=== PATIENT | male | born 1940 | race Hispanic/Latino ===

== ENCOUNTER 2017-05-06 07:40 | Day surgery (SDC) | payer MEDICARE ==
[2017-05-05 14:17] VITALS: BMI 28.5
[2017-05-06 09:04] VITALS: RESP 18
[2017-05-06] MEDS ORDERED: ceFAZolin 1 gm FROZEN Premix 1 GM/50 ML ML IVPB ONE (09:26)
[2017-05-06] MEDS ORDERED: ceFAZolin IV 1 gm in Dextrose 1 GM/50 ML BAG IVPB ONE (09:28)
--- NOTE | 2017-05-06 09:28 | CP.SDSHP ---
Same Day Surgery H & P - History Proposed Procedure: Right medication port placement. Pre-Op Diagnosis: Malignant melanoma. - Allergies Allergies: Allergies No Known Allergies Allergy (Unverified 08/09/13 13:26) - Physical Exam Vital Signs: Vital Signs 05/06/17 08:43 Temperature 97.7 F Pulse Rate 60 Respiratory 18 Rate Blood Pressure 125/65 O2 Sat by Pulse 96 Oximetry Short Stay Discharge - Short Stay Discharge Admitting Diagnosis/Reason for Visit: MALIGNANT MELANOMA OF SKIN, UNSPECIFIED Disposition: HOME/ ROUTINE
[2017-05-06] MEDS ORDERED: Lidocaine 1% w Epi 1:100,000 Inj ONE (09:32)
[2017-05-06] MEDS ORDERED: Midazolam 2 MG/2 ML VIAL ONE ×2 (09:36→09:50)
[2017-05-06] MEDS ORDERED: Lidocaine 2% Inj (20ml) ONE (10:03)
--- NOTE | 2017-05-06 10:56 | PCM.SURG1 ---
Surgeon's Initial Post Op Note - Surgeon's Notes Surgeon: Valentin Director Telemetry: None Type of Anesthesia: Local Pre-Operative Diagnosis: Melanoma Operative Findings: Patent right IJV. Post-Operative Diagnosis: Melanoma Operation Performed: Right chest medication port placed via right IJV Specimen/Specimens Removed: None Estimated Blood Loss: EBL {In ML}: 1 Date of Surgery/Procedure: 05/06/17 Time of Surgery/Procedure: 10:30
[2017-05-06 11:57] VITALS: PULSE 65; O2SAT 98
[2017-05-06 13:34] VITALS: BP 148/91; TEMP 98
== END 2017-05-06 12:17 | disposition home or self-care (01) ==
LOC: C.SPRAD 07:40
PROVIDERS: ATTEND Orthopaedic Surgery Sports Medicine
DX: C43.9 Malignant melanoma of skin, unspecified (principal); K21.9 Gastro-esophageal reflux disease without esophagitis; Z87.891 Personal history of nicotine dependence
CPT/HCPCS: 36571; 76937; 77001; 94770; C1769; C1788; J0690; J1644; J2250; J3010

== ENCOUNTER 2018-01-12 15:41 | Emergency (ER) | payer MEDICARE ==
[2018-01-12 15:41] VITALS: BMI 28.5
[2018-01-12] MEDS ORDERED: Bacitracin 500 Units/gm Oint Foilpak UD TOP ONE (16:09)
--- NOTE | 2018-01-12 16:20 | C.PDOC ---
History Of Present Illness 77 year old male, whose PMHx includes skin cancer, presents to the ED for evaluation after he sustained a fall prior to arrival. Patient was leaving Dr. Bernstein's office after completing his chemotherapy session. He was using his walker when he accidentally tripped and fell. Patient also states he has an abscess to his right facial area for which he is taking PO antibiotics and pain medications. Patient denies loss of consciousness, wrist pain, tongue bite. 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), Fractures (right arm) Denies: Chronic Kidney Disease Surgical History: No Surg Hx Family History: States: Unknown Family Hx - Social History Hx Tobacco Use: No Hx Alcohol Use: Yes (3-4x a week x 4 beers) Hx Substance Use: No - Immunization History Hx Tetanus Toxoid Vaccination: No Hx Influenza Vaccination: No Hx Pneumococcal Vaccination: Yes (5 years ago) Review Of Systems Musculoskeletal: Negative for: Other (wrist pain ) Skin: Positive for: Other (evaluated s/p fall ) Neurological: Negative for: Other (LOC ) Physical Exam - Physical Exam Appears: Non-toxic, No Acute Distress Skin: Warm, Dry, Other (large soft mass to right facial area; abrasions to bilateral knees and left elbow. no active bleeding ) Head: Abrasion (left forehead ), Other (surgical site to left scalp with dressing intact ) Eye(s): bilateral: Normal Inspection, PERRL, EOMI Nose: No Epistaxis, No Deformity, No Tenderness, No Septal Hematoma, Other (dry blood to right nare, irregular 0.5cm laceration to bridge of nose. no active bleeding ) Oral Mucosa: Moist Tongue: No Normal Appearing, No Bite Lips: Normal Appearing Teeth: No Loose, No Avulsed Neck: Supple Chest: Symmetrical, No Deformity, No Tenderness Cardiovascular: Rhythm Regular, No Murmur Respiratory: Normal Breath Sounds, No Rales, No Rhonchi, No Wheezing Gastrointestinal/Abdominal: Soft, No Tenderness, No Guarding, No Rebound Extremity: Normal ROM, Capillary Refill (less than 2 seconds ) Extremity: Bilateral: Hips Non-Tender Neurological/Psych: Oriented x3, Normal Speech Gait: Unable To Assess ED Course And Treatment O2 Sat by Pulse Oximetry: 93 (RA) Pulse Ox Interpretation: Normal - CT Scan/US CT HEAD Other Rad Studies (CT/US): Read By Radiologist, Radiology Report Reviewed CT/US Interpretation: Accession No. : [id number]. Patient Name / ID : DEZ Gonzales / [id number]. Exam Date : 01/12/2018 16:37:39 ( Approved ). Study Comment : Sex / Age : M / 77Y. Creator : Janeth Pelletier. Dictator : Avel Pereyra MD. Cash Sales Audit Clerk : Freezing Room Worker : Avel Pereyra MD. Approver2 : Report Date : 01/12/2018 17:02:56. My Comment : . PROCEDURE: CT HEAD WITHOUT CONTRAST. HISTORY: JUDGE s/p trip and fall. COMPARISON: None available. TECHNIQUE: Axial computed tomography images were obtained through the head/brain without intravenous contrast. Radiation dose: Total exam DLP = 835.43 mGy-cm. This CT exam was performed using one or more of the following dose reduction techniques: Automated exposure control, adjustment of the mA and/ or kV according to patient size, and/or use of iterative reconstruction technique. FINDINGS: HEMORRHAGE: No intracranial hemorrhage. BRAIN: No mass effect or edema. Right parietal encephalomalacia. Status post resection of high parietal cerebrum bilaterally. Extensive craniectomy. No evidence of acute infarct. Moderate periventricular white matter lucency consistent with chronic microvascular ischemic change. VENTRICLES: Unremarkable. No hydrocephalus. CALVARIUM: Extensive bilateral parietal craniectomy, right greater than left. Right frontal craniotomy. PARANASAL SINUSES: Unremarkable as visualized. No significant inflammatory changes. MASTOID AIR CELLS: Unremarkable as visualized. No inflammatory changes. OTHER FINDINGS: None. IMPRESSION: Resection of parietal lobe bilaterally, right greater than left. Extensive parietal craniectomy bilateral. Right frontal craniotomy. No evidence of acute intracranial hemorrhage. CT MAX/FACE Other Rad Studies (CT/US): Read By Radiologist, Radiology Report Reviewed CT/US Interpretation: Accession No. : [id number]. Patient Name / ID : DEZ Gonzales / [id number]. Exam Date : 01/12/2018 16:40:07 ( Approved ). Study Comment : Sex / Age : M / 77Y. Creator : Janeth Pelletier. Dictator : Cash Sales Audit Clerk : Freezing Room Worker : Lion Mccoy MD. Approver2 : Report Date : 01/12/2018 17:02:50. My Comment : . PROCEDURE: CT scan maxillofacial skeleton dated 01/12/2018. HISTORY: Nasal pain and right face pain w abscess; s.p fall. COMPARISON: Made with concurrent CT scan brain. TECHNIQUE: Contiguous helical/transaxial CT images of the maxillofacial bones were obtained. Coronal and sagittal reformats were generated. Radiation dose: Total exam DLP = 1808.85 mGy-cm. This CT exam was performed using one or more of the following dose reduction techniques: Automated exposure control, adjustment of the mA and/or kV according to patient size, and/or use of iterative reconstruction technique. FINDINGS: NASAL BONES: Bilateral nasal bone fracture deformities are present with minor overlying soft tissue swelling. No other maxillofacial skeletal fractures are identified. A helicis skin ataxia. ORBITS: The orbits and contents appear unremarkable. Globes intact and lenses appropriately located. There are no retrobulbar hemorrhages or collections. The optic nerves and extraocular musculature unremarkable. PARANASAL SINUSES/ MASTOIDS: The frontal sinuses are of the slightly underpneumatized however the remaining paranasal sinuses well-developed on. No fluid levels seen to suggest acute hemorrhage or sinusitis. Minimal mucosal thickening seen within several ethmoid air cells extending superiorly into the inferior margin of the frontal sinus. MAXILLA: Maxilla including the anterior nasal spine of the maxilla appear intact. MANDIBLE/ TEMPOROMANDIBULAR JOINTS: Unremarkable. SKULL BASE: Unremarkable. TEMPORAL BONES: Middle ears and mastoid grossly unremarkable. OTHER FINDINGS: Multiple metallic surgical clips are seen along right lateral margin of the aspect of the neck and face extending superiorly over the right parotid gland and over the right temporalis musculature. There is a very large approximately 9.1cm t x 8.2cm cc x 6.5 cm cc heterogeneous some lobulated mass lesion with areas of low attenuation - cystic component by multiple septations located within the right the submental/submandibular region. This lesion partially surrounds inferior margins of the ramus and posterior and angle of the mandible. This lesion is of uncertain etiology however presumed recurrent tumor given the aforementioned multiple metallic clips . Clinical correlation recommended. . In addition, there is a large right-sided jugulodigastric mass likely representing malignant adenopathy that measures approximately 4.2 cm t x 3.8 cm cc x 2.9 cm ap. Multiple additional bilateral cervical lymph nodes are present within the posterior cervical spaces, one of which, on the left side is either centrally cystic or necrotic measuring approximately 9.4 mm there is also enlarged left- sided jugulodigastric lymph node measuring approximately 16.1 mm. Enlarged left- sided submandibular lymph node measures approximately 15.6 mm. IMPRESSION: There is a very large heterogeneous cystic and/or necrotic right facial and submandibular mass lesion which partially surrounds inferior margins of the ramus and posterior and angle of the mandible. This lesion is felt to represent a malignant mass likely recurrent tumor as has been detailed above ; rule out squamous cell carcinoma versus other malignant lesions such as mucoid epidermoid adenoid cystic or skin carcinoma however clinical correlation recommended. There is also enlarged heterogeneous cystic and/or partially necrotic right inguinal lymph node. Additional multiple varying sized bilateral cervical lymph nodes one 1 of which in the posterior cervical space on the left side exhibits cystic necrosis or degeneration. Clinical correlation recommended. Note that these findings were discussed with emergency room physician engineering inspection assistant James at approximately 6:25 p.m. with written down and read back verification. Medical Decision Making Medical Decision Making: Impression: 77 year old male for evaluation s/p fall Plan: * CT Head * CT Maxillofacial * Right Elbow XR * Bacitracin TOP Progress: CT Head, CT Maxillofacial, and Right elbow XR ordered. Wounds cleansed and irrigated with normal saline. Bacitracin applied to all wounds. Dermabond skin glue applied to nose laceration with good adhesion. Imaging results reviewed showing nasal fracture and no intracranial bleed. Extension Service Specialist is at bedside and given copy of all results. She is aware of tumor and medical problems, the patient is under impression he has an abscess to face. Patient is stable for discharge. The surgical consultant will accompany and drive the patient home Disposition Counseled Patient/Family Regarding: Diagnosis, Need For Followup, Rx Given - Disposition Referrals: Calvin Milligan [Staff Provider] - Joao Salgado MD [Staff Provider] - Disposition: HOME/ ROUTINE Disposition Time: 18:38 Condition: STABLE Additional Instructions: You have nose fracture Take pain medicine as needed Follow up with ENT and your regular doctor Prescriptions: Ibuprofen [Motrin] 600 mg PO Q8 #30 tab Instructions: Nose Fracture (DC), Head Injury (ED) - POA Present On Arrival: None, Falls Or Trauma - Clinical Impression Clinical Impression: Nasal bone fracture, Accidental fall, Abrasion, multiple sites - PA / DRILL SERGEANT / Resident Statement MD/DO has reviewed & agrees with the documentation as recorded. - Scribe Statement The provider has reviewed the documentation as recorded by the Scribe (Jacinta Morrison) All medical record entries made by the Scribe were at my direction and personally dictated by me. I have reviewed the chart and agree that the record accurately reflects my personal performance of the history, physical exam, medical decision making, and the department course for this patient. I have also personally directed, reviewed, and agree with the discharge instructions and disposition.
--- NOTE | 2018-01-12 17:30 | CT ---
PROCEDURE: CT HEAD WITHOUT CONTRAST. HISTORY: JUDGE s/p trip and fall COMPARISON: None available. TECHNIQUE: Axial computed tomography images were obtained through the head/brain without intravenous contrast. Radiation dose: Total exam DLP = 835.43 mGy-cm. This CT exam was performed using one or more of the following dose reduction techniques: Automated exposure control, adjustment of the mA and/or kV according to patient size, and/or use of iterative reconstruction technique. FINDINGS: HEMORRHAGE: No intracranial hemorrhage. BRAIN: No mass effect or edema. Right parietal encephalomalacia. Status post resection of high parietal cerebrum bilaterally. Extensive craniectomy. No evidence of acute infarct. Moderate periventricular white matter lucency consistent with chronic microvascular ischemic change. VENTRICLES: Unremarkable. No hydrocephalus. CALVARIUM: Extensive bilateral parietal craniectomy, right greater than left. Right frontal craniotomy. PARANASAL SINUSES: Unremarkable as visualized. No significant inflammatory changes. MASTOID AIR CELLS: Unremarkable as visualized. No inflammatory changes. OTHER FINDINGS: None. IMPRESSION: Resection of parietal lobe bilaterally, right greater than left. Extensive parietal craniectomy bilateral. Right frontal craniotomy. No evidence of acute intracranial hemorrhage.
[2018-01-12] MEDS: Oxycodone/Acetaminophen 5/325 mg Tab PO STA (18:19)
[2018-01-12] MEDS ORDERED: Oxycodone/Acetaminophen 5/325 mg Tab ONE (18:21)
--- NOTE | 2018-01-12 18:29 | CT ---
PROCEDURE: CT scan maxillofacial skeleton dated 01/12/2018 HISTORY: Nasal pain and right face pain w abscess; s.p fall COMPARISON: Made with concurrent CT scan brain TECHNIQUE: Contiguous helical/transaxial CT images of the maxillofacial bones were obtained. Coronal and sagittal reformats were generated. Radiation dose: Total exam DLP = 1808.85 mGy-cm. This CT exam was performed using one or more of the following dose reduction techniques: Automated exposure control, adjustment of the mA and/or kV according to patient size, and/or use of iterative reconstruction technique. FINDINGS: NASAL BONES: Bilateral nasal bone fracture deformities are present with minor overlying soft tissue swelling. No other maxillofacial skeletal fractures are identified. A helicis skin ataxia ORBITS: The orbits and contents appear unremarkable. Globes intact and lenses appropriately located. There are no retrobulbar hemorrhages or collections. The optic nerves and extraocular musculature unremarkable. PARANASAL SINUSES/ MASTOIDS: The frontal sinuses are of the slightly underpneumatized however the remaining paranasal sinuses well-developed on. No fluid levels seen to suggest acute hemorrhage or sinusitis. Minimal mucosal thickening seen within several ethmoid air cells extending superiorly into the inferior margin of the frontal sinus. MAXILLA: Maxilla including the anterior nasal spine of the maxilla appear intact. MANDIBLE/ TEMPOROMANDIBULAR JOINTS: Unremarkable. SKULL BASE: Unremarkable. TEMPORAL BONES: Middle ears and mastoid grossly unremarkable. OTHER FINDINGS: Multiple metallic surgical clips are seen along right lateral margin of the aspect of the neck and face extending superiorly over the right parotid gland and over the right temporalis musculature. There is a very large approximately 9.1cm t x 8.2cm cc x 6.5 cm cc heterogeneous some lobulated mass lesion with areas of low attenuation -cystic component by multiple septations located within the right the submental/submandibular region. This lesion partially surrounds inferior margins of the ramus and posterior and angle of the mandible This lesion is of uncertain etiology however presumed recurrent tumor given the aforementioned multiple metallic clips . Clinical correlation recommended. . In addition, there is a large right-sided jugulodigastric mass likely representing malignant adenopathy that measures approximately 4.2 cm t x 3.8 cm cc x 2.9 cm ap. Multiple additional bilateral cervical lymph nodes are present within the posterior cervical spaces, one of which, on the left side is either centrally cystic or necrotic measuring approximately 9.4 mm there is also enlarged left-sided jugulodigastric lymph node measuring approximately 16.1 mm. Enlarged left-sided submandibular lymph node measures approximately 15.6 mm. IMPRESSION: There is a very large heterogeneous cystic and/or necrotic right facial and submandibular mass lesion which partially surrounds inferior margins of the ramus and posterior and angle of the mandible. This lesion is felt to represent a malignant mass likely recurrent tumor as has been detailed above ; rule out squamous cell carcinoma versus other malignant lesions such as mucoid epidermoid adenoid cystic or skin carcinoma however clinical correlation recommended. There is also enlarged heterogeneous cystic and/or partially necrotic right inguinal lymph node. Additional multiple varying sized bilateral cervical lymph nodes one 1 of which in the posterior cervical space on the left side exhibits cystic necrosis or degeneration. Clinical correlation recommended Note that these findings were discussed with emergency room physician assistant Ramirez at approximately 6:25 p.m. with written down and read back verification.
[2018-01-12 18:47] VITALS: BP 148/64; PULSE 81; RESP 23; TEMP 98.8; O2SAT 93
--- NOTE | 2018-01-13 08:37 | RAD ---
PROCEDURE: Radiographs of the left elbow. HISTORY: pain s.p fall COMPARISON: No prior. FINDINGS: BONES: Normal. No fracture. JOINTS: Normal. No osteoarthritis. SOFT TISSUES: Normal. JOINT EFFUSION: None. OTHER FINDINGS: None IMPRESSION: Unremarkable radiographs of the left elbow.
--- NOTE | 2018-01-13 08:38 | RAD ---
PROCEDURE: Bilateral Knee Radiographs. HISTORY: pain s.p fall COMPARISON: None. FINDINGS: BONES: Right Knee: Normal. No fracture. Left Knee: Normal. No fracture. JOINTS: Right Knee: Normal. No osteoarthritis. Left knee: Narrowing of medial joint compartment with mild marginal osteophyte formation. Consistent with osteoarthritis. Lateral and patellofemoral compartments preserved. SOFT TISSUES: Right Knee: Normal. Left Knee: Normal. JOINT EFFUSION: Right Knee: None. Left Knee: None. OTHER FINDINGS: None. IMPRESSION: Mild left medial osteoarthritis. Otherwise unremarkable.
== END 2018-01-12 19:04 | disposition home or self-care (01) ==
LOC: C.ER 15:41
DX: S02.2XXA Fracture of nasal bones, initial encounter for closed fracture (principal); S00.81XA Abrasion of other part of head, initial encounter; S50.312A Abrasion of left elbow, initial encounter; S80.212A Abrasion, left knee, initial encounter; S80.211A Abrasion, right knee, initial encounter; W01.0XXA Fall on same level from slipping, tripping and stumbling without subsequent striking against object, initial encounter; Y92.480 Sidewalk as the place of occurrence of the external cause